=== PATIENT | female | born 1955 | race Two or more races ===

== ENCOUNTER → 2017-04-23 | Outpatient (CLI) | payer MEDICARE, OTHER ==
[2017-04-23 11:12] LABS: BASOPHILS % (AUTO) 0.5 % (0.0-2.0); EOSINOPHILS % (AUTO) 2.5 % (1.0-6.0); HEMATOCRIT 38.9 % (36-46); HEMOGLOBIN 12.8 g/dL (12.0-16.0); LYMPHOCYTES # (AUTO) 1.4 K/uL (1.0-4.8); LYMPHOCYTES % (AUTO) 18.2 % (22.0-44.0); MEAN CORPUSCULAR HEMOGLOBIN 31.9 pg (26.0-34.0); MEAN CORPUSCULAR VOLUME 97 fL (80-100); MONOCYTES # (AUTO) 0.6 K/uL (0.1-1.0); MONOCYTES % (AUTO) 7.4 % (2.0-9.0); NEUTROPHILS # (AUTO) 5.3 K/uL (1.8-7.7); NEUTROPHILS % (AUTO) 71.4 % (40.0-70.0); PLATELET COUNT (AUTO) 270 K/uL (150-450); RBC MORPHOLOGY COMMENT ABNORMAL RBC MORPH; RED BLOOD CELL COUNT(AUTO) 4.03 MIL/uL (4.00-5.20); WHITE BLOOD COUNT (AUTO) 7.5 K/uL (4.5-11.0)
[2017-04-23 11:25] LABS: ALBUMIN 3.6 g/dL (3.4-5.0); BILIRUBIN,TOTAL 0.6 mg/dL (0.1-1.0); CHOL/HDL RATIO 3.6 (3.9-5.7); CREATININE 4.93 mg/dL (0.60-1.30); POTASSIUM 5.3 mmol/L (3.5-5.1); TOTAL PROTEIN, SERUM 8.2 g/dL (6.4-8.2)
== END | disposition home or self-care (01) ==
LOC: LABPV 10:15
PROVIDERS: ATTEND Internal Medicine Cardiovascular Disease
DX: I11.0 Hypertensive heart disease with heart failure (principal); I50.9 Heart failure, unspecified; E11.8 Type 2 diabetes mellitus with unspecified complications; E55.9 Vitamin D deficiency, unspecified

== ENCOUNTER → 2017-08-29 | Outpatient (CLI) | payer MEDICARE ==
[2017-08-29 13:05] LABS: BASOPHILS # (AUTO) 0.05 K/uL (0.00-0.20); BASOPHILS % (AUTO) 0.8 % (0.0-2.0); EOSINOPHILS # (AUTO) 0.19 K/uL (0.00-0.70); EOSINOPHILS % (AUTO) 2.59 % (1.0-6.0); HEMATOCRIT 37.5 % (36-46); LYMPHOCYTES # (AUTO) 1.7 K/uL (1.0-4.8); LYMPHOCYTES % (AUTO) 23.6 % (22.0-44.0); MEAN CORPUSCULAR VOLUME 94 fL (80-100); MONOCYTES # (AUTO) 0.5 K/uL (0.1-1.0); MONOCYTES % (AUTO) 6.7 % (2.0-9.0); NEUTROPHILS # (AUTO) 4.8 K/uL (1.8-7.7); NEUTROPHILS % (AUTO) 66.4 % (40.0-70.0); PLATELET COUNT (AUTO) 208 K/uL (150-450); RED BLOOD CELL COUNT(AUTO) 4.01 MIL/uL (4.00-5.20); RED CELL DISTRIBUTION WIDTH 16.7 % (11.5-14.5)
[2017-08-29 13:48] LABS: ALBUMIN 3.8 g/dL (3.4-5.0); BILIRUBIN,TOTAL 0.5 mg/dL (0.1-1.0); CALCIUM, TOTAL 9.1 mg/dL (8.8-10.5); CHOL/HDL RATIO 1.9 (3.9-5.7); CREATININE 4.82 mg/dL (0.60-1.30); TOTAL PROTEIN, SERUM 8.5 g/dL (6.4-8.2)
[2017-08-29 14:17] LABS: POTASSIUM 4.6 mmol/L (3.5-5.1)
== END | disposition home or self-care (01) ==
LOC: LABPV 08:56
PROVIDERS: ATTEND Internal Medicine Cardiovascular Disease
DX: I11.0 Hypertensive heart disease with heart failure (principal); I50.9 Heart failure, unspecified; E11.8 Type 2 diabetes mellitus with unspecified complications; E55.9 Vitamin D deficiency, unspecified